=== PATIENT | male | born 1960 | race Caucasian/White ===

== ENCOUNTER 2021-08-04 07:31 | Day surgery (SDC) | payer OTHER ==
[2021-08-03 10:16] VITALS: BMI 22.8
[2021-08-04] MEDS ORDERED: EPINEPHrine 1 MG/ML AMP ONE (08:48)
[2021-08-04] MEDS ORDERED: Lidocaine 1% w/Epinephrine 1:100K 30 ML VIAL ONE (08:48)
[2021-08-04] MEDS ORDERED: SUGAMMADEX SODIUM 200 MG/2 ML VIAL ONE (08:58)
[2021-08-04] MEDS ORDERED: Fentanyl 100 MCG/2 ML VIAL ONE (08:58)
[2021-08-04] MEDS ORDERED: Ondansetron PF 4 MG/2 ML Vial ONE ×2 (09:15→09:39)
[2021-08-04] MEDS ORDERED: Dexamethasone 20 MG/5 ML VIAL ONE (09:39)
[2021-08-04] MEDS ORDERED: PROPOFOL 200 MG/20 ML VIAL ONE (09:39)
[2021-08-04] MEDS ORDERED: Glycopyrrolate 0.2 MG/ML 5 ML SYRINGE ONE (09:39)
[2021-08-04] MEDS ORDERED: Rocuronium Bromide 10 MG/ML (10ML VIAL) ONE (09:39)
[2021-08-04] MEDS ORDERED: Lidocaine 1% PF 5 ML VIAL ONE (09:39)
== END 2021-08-04 11:53 | disposition home or self-care (01) ==
LOC: SDC 07:31
PROVIDERS: ATTEND Student in an Organized Health Care Education/Training Program
PROC: 0CDT8ZZ Extraction of Right Vocal Cord, Via Natural or Artificial Opening Endoscopic (ICD-10-PCS; principal; 2021-08-04)
DX: J38.3 Other diseases of vocal cords (principal); K21.9 Gastro-esophageal reflux disease without esophagitis; I10 Essential (primary) hypertension; F17.210 Nicotine dependence, cigarettes, uncomplicated; E78.5 Hyperlipidemia, unspecified; Z79.899 Other long term (current) drug therapy
CPT/HCPCS: 88305; J0171; J1100; J2405; J2704; J3010

== ENCOUNTER 2022-07-28 10:22 | Outpatient (CLI) | payer OTHER | END 2022-07-28 10:23 | disposition home or self-care (01) | LOC: SCSRAD 10:22 | PROVIDERS: ATTEND Physician Assistant | DX: M54.2 Cervicalgia (principal); M47.812 Spondylosis without myelopathy or radiculopathy, cervical region; M43.12 Spondylolisthesis, cervical region | CPT/HCPCS: 72040 ==

== ENCOUNTER 2025-07-24 07:23 | Outpatient (CLI) | payer OTHER | END 2025-07-24 07:24 | disposition home or self-care (01) | LOC: SCSMRI 07:23 | PROVIDERS: ATTEND Orthopaedic Surgery | DX: M48.02 Spinal stenosis, cervical region (principal); M75.102 Unspecified rotator cuff tear or rupture of left shoulder, not specified as traumatic; M75.122 Complete rotator cuff tear or rupture of left shoulder, not specified as traumatic; M62.512 Muscle wasting and atrophy, not elsewhere classified, left shoulder | CPT/HCPCS: 72141 ==

== ENCOUNTER 2025-08-06 07:27 | Outpatient (CLI) | payer OTHER | END 2025-08-06 07:28 | disposition home or self-care (01) | LOC: LABBT 07:27 | PROVIDERS: ATTEND Orthopaedic Surgery | DX: Z01.818 Encounter for other preprocedural examination (principal); M48.02 Spinal stenosis, cervical region; M47.12 Other spondylosis with myelopathy, cervical region; M47.22 Other spondylosis with radiculopathy, cervical region | CPT/HCPCS: 71046; 93005; 93010 ==